=== PATIENT | male | born 1990 | race Caucasian/White ===

== ENCOUNTER 2017-03-19 23:13 | Emergency (ER) | payer OTHER ==
[~2017-03-19 23:13] MED LIST: NO MEDICATIONS
== END 2017-03-20 00:35 | disposition home or self-care (01) ==
LOC: SED 23:13
DX: L02.414 Cutaneous abscess of left upper limb (principal); I25.2 Old myocardial infarction; F17.200 Nicotine dependence, unspecified, uncomplicated
CPT/HCPCS: 10060; 87070; 87077; 87205; 99282